=== PATIENT | female | born 2000 | race African-American/Black ===

== ENCOUNTER 2022-09-25 01:10 | Emergency (ER) | payer SELFPAY ==
[~2022-09-25] VITALS: Ht 160 cm; Wt 54.0 kg
[2022-09-25 01:13] VITALS: BP 110/71
== END 2022-09-25 02:20 | disposition home or self-care (01) ==
LOC: ER 01:26
DX: R19.7 Diarrhea, unspecified (principal); R55 Syncope and collapse
CPT/HCPCS: 82962; 93005; 99283

== ENCOUNTER 2022-09-25 02:41 | Emergency (ER) | payer SELFPAY ==
[~2022-09-25] VITALS: Ht 160 cm; Wt 54.0 kg
[2022-09-25] MEDS ORDERED: SODIUM CHLORIDE 0.9% 1000ML BAG (SEPSIS BOLUS) IV ONE (03:00)
[2022-09-25 04:13] LABS: HEMATOCRIT. 39.8 % (36.0-48.0); HEMOGLOBIN. 13.6 g/dL (12.0-16.0); MEAN CORPUSCULAR HEMOGLOBIN 31.1 pg (28.0-32.0); MEAN CORPUSCULAR VOLUME 91.2 fL (81.0-99.0); MEAN PLATELET VOLUME 8.5 fl (7.4-10.4); PLATELET 260 x1000/uL (130-400); RED BLOOD CELL COUNT 4.37 mill/uL (4.2-5.4); RED CELL DISTRIBUTION WIDTH 12.8 % (11.6-14.6)
[2022-09-25 04:22] LABS: CHLORIDE 105 mEq/L (98-107)
[2022-09-25 04:32] LABS: ETHANOL BLOOD < 10 mg/dL
[2022-09-25] MEDS ORDERED: ONDANSETRON HCL 4MG/2ML INJ IV ONE (04:45)
[2022-09-25] MEDS ORDERED: POTASSIUM CHLORIDE 20MEQ TABLET SR PO NR (05:00)
[2022-09-25 05:30] VITALS: BP 119/76
[2022-09-25 05:40] LABS: *AMPHETAMINES SCREEN URINE NEGATIVE (NEGATIVE); *BARBITURATES SCREEN URINE NEGATIVE (NEGATIVE); *BENZODIAZEPINES SCREEN URINE NEGATIVE (NEGATIVE); *COCAINE SCREEN URINE NEGATIVE (NEGATIVE); CANNABINOID URINE SCREEN NEGATIVE (NEGATIVE); METHADONE URINE SCREEN NEGATIVE (NEGATIVE); OPIATES URINE SCREEN NEGATIVE (NEGATIVE); PHENCYCLIDINE URINE SCREEN NEGATIVE (NEGATIVE)
[2022-09-25 07:10] LABS: COLOR URINE DARK YELLOW (YELLOW)
[2022-09-25 07:11] LABS: CLARITY URINE CLOUDY (CLEAR); PROTEIN URINE 2+ (NEGATIVE)
[2022-09-25 07:12] LABS: KETONES URINE 2+ (NEGATIVE); NITRITE URINE NEGATIVE (NEGATIVE); OCCULT BLOOD URINE NEGATIVE (NEGATIVE)
[2022-09-25 07:13] LABS: LEUKOCYTE ESTERASE URINE 1+ (NEGATIVE)
[2022-09-25 08:54] LABS: PLATELET ESTIMATE NORMAL
== END 2022-09-25 06:10 | disposition home or self-care (01) ==
LOC: ER 02:41
DX: R55 Syncope and collapse (principal); E87.6 Hypokalemia
CPT/HCPCS: 36415; 71045; 80053; 80305; 80320; 81003; 83605; 84145; 85025; 87040; 96361; 96374; 99284; J2405; J7030; Z7610; G0480